=== PATIENT | male | born 1945 ===

== ENCOUNTER 2017-06-18 09:17 | Emergency (ER) | payer SELFPAY ==
[2017-06-18 09:20] VITALS: BMI 24.5
[2017-06-18 09:22] VITALS: BP 144/79; PULSE 58; RESP 17; TEMP 98.5; O2SAT 98
[2017-06-18] MEDS ORDERED: Sodium Chloride 0.9% 500 ML IV STA (09:37)
--- NOTE | 2017-06-18 09:41 | ED PDOC ---
Lower Extremity Pain/Injury Time Seen by Provider: 06/18/17 09:30 Chief Complaint (Nursing): Lower Extremity Problem/Injury Chief Complaint (Provider): Knee pain History Per: Patient History/Exam Limitations: no limitations Onset/Duration Of Symptoms: Days (2) Current Symptoms Are (Timing): Still Present Severity: Mild Additional Complaint(s): Pt. with R knee pain ongoing for 2 days. Feels like his usual gout flare. Swelling of knee also present. Able to bend knee with pain. No numbness, tingles, fever, chills, headaches. Takes allopurinol at home, no other pain meds. No calf pain. Past Medical History Reviewed: Nursing Documentation, Vital Signs Vital Signs: Last Vital Signs Temp 98.5 F 06/18/17 09:20 Pulse 58 L 06/18/17 09:20 Resp 17 06/18/17 09:20 BP 144/79 06/18/17 09:20 Pulse Ox 98 06/18/17 09:31 - Medical History PMH: HTN Other PMH: gout - Surgical History Surgical History: No Surg Hx - Family History Family History: States: Unknown Family Hx - Living Arrangements Living Arrangements: With Family - Social History Current smoker - smoking cessation education provided: No Alcohol: None Drugs: Denies - Home Medications Home Medications: Ambulatory Orders Medication Instructions Recorded Ibuprofen [Motrin] 600 mg PO TID 7 Days 06/18/17 - Allergies Allergies/Adverse Reactions: Allergies Allergy/AdvReac Type Severity Reaction Status Date / Time No Known Allergies Allergy Verified 06/18/17 09:31 Review of Systems ROS Statement: Except As Marked, All Systems Reviewed And Found Negative Musculoskeletal: Positive for: Leg Pain Physical Exam - Reviewed Nursing Documentation Reviewed: Yes Vital Signs Reviewed: Yes - Physical Exam Appears: Positive for: Non-toxic, No Acute Distress Head Exam: Positive for: ATRAUMATIC, NORMAL INSPECTION, NORMOCEPHALIC Skin: Positive for: Normal Color, Warm, DRY Neck: Positive for: Normal, Painless ROM, Supple Cardiovascular/Chest: Positive for: Regular Rate, Rhythm Respiratory: Positive for: CNT, Normal Breath Sounds Pulses-Dorsalis Pedis (R): 2+ Pulses-Post. Tibialis (R): 2+ Back: Positive for: Normal Inspection. Negative for: L CVA Tenderness, R CVA Tenderness Extremity: Positive for: Normal ROM (mild pain but full ROM of R knee; no laxity ), Tenderness (R knee lateral and medial area with swelling mild), Swelling, Other (no abrasion or dc). Negative for: Calf Tenderness, Deformity Neurologic/Psych: Positive for: Alert, Oriented - Laboratory Results Result Diagrams: 06/18/17 10:00 06/18/17 10:00 Interpretation Of Abn Labs: no acute - ECG O2 Sat by Pulse Oximetry: 98 Pulse Ox Interpretation: Normal - Radiology X-Ray: Read By Radiologist X-Ray Interpretation: No Acute Disease - Progress ED Course And Treament: 1040: Stable. AAOx3. Uric acid level wnl. Has decreased pain. Not likely septic knee as pt. is able to move in fully. No wbc. No fever or tachycardia. Fu with clinic. Has small effusion which pt. can see [facility] for further eval and possible ortho referral. Ambulating with no issues. Disposition - Clinical Impression Clinical Impression: Knee pain - Patient ED Disposition Is Patient to be Admitted: No Counseled Patient/Family Regarding: Studies Performed, Diagnosis, Need For Followup, Rx Given - Disposition Referrals: [facility] [Outside] - 06/20/17 Disposition: Routine/Home Disposition Time: 10:42 Condition: STABLE Additional Instructions: Return if not better in 3 days. Prescriptions: Ibuprofen [Motrin] 600 mg PO TID 7 Days Instructions: Knee Pain (ED) Forms: [employer] (Divehi) Print Language: HUNGARIAN
[2017-06-18 10:23] LABS: BASO % 0.6 % (0.0-2.0); EOS # 0.2 K/uL (0.0-0.7); EOS % 3.7 % (0.0-4.0); HEMOGLOBIN 15.4 g/dL (12.0-18.0); LYMPH # 1.9 K/uL (1.0-4.3); MEAN CELL VOLUME 91.3 fl (80.0-94.0); MEAN CORPUSCULAR HEMOGLOBIN 29.8 pg (27.0-31.0); MEAN CORPUSCULAR HGB CONC 32.6 g/dL (33.0-37.0); MONO # 0.5 K/uL (0.0-0.8); MONO % 11.5 % (0.0-10.0); NEUT # 1.6 K/uL (1.8-7.0); NEUT % 38.2 % (50.0-75.0); NRBC % 0.1 % (0.0-0.0); RBC 5.15 Mil/uL (4.40-5.90); RED CELL DISTRIBUTION WIDTH 15.4 % (11.5-14.5); WHITE BLOOD COUNT 4.2 K/uL (4.8-10.8)
--- NOTE | 2017-06-18 10:23 | RAD ---
HISTORY: pain COMPARISON: No prior FINDINGS: BONES: Osteopenia no fracture. JOINTS: Small joint effusion. Lateral compartment chondrocalcinosis SOFT TISSUE: Normal. OTHER FINDINGS: None . IMPRESSION: No acute fracture.
[2017-06-18 10:37] LABS: ALB/GLOB RATIO 1.3 (1.0-2.1); ALBUMIN 4.1 g/dL (3.5-5.0); ALT/SGPT 40 U/L (21-72); AST/SGOT 25 U/L (17-59); BLOOD UREA NITROGEN 16 mg/dl (9-20); CALCIUM 10.1 mg/dL (8.4-10.2); GFR AFRICAN-AMERICAN > 60; GFR NON-AFRICAN AMERICAN > 60; URIC ACID 5.1 mg/Dl (3.5-8.5)
== END 2017-06-18 11:11 | disposition home or self-care (01) ==
LOC: H.ER 09:17
DX: M25.561 Pain in right knee (principal); M10.9 Gout, unspecified; I10 Essential (primary) hypertension

== ENCOUNTER 2017-06-19 12:16 | Emergency (ER) | payer SELFPAY ==
[2017-06-19 12:17] VITALS: BMI 24.5
[2017-06-19 12:36] VITALS: BP 134/72; PULSE 68; RESP 16; TEMP 98.8; O2SAT 100
--- NOTE | 2017-06-19 12:57 | ED PDOC ---
Lower Extremity Pain/Injury Time Seen by Provider: 06/19/17 12:41 Chief Complaint (Nursing): Lower Extremity Problem/Injury History Per: Patient (Right knee pain x 3 weeks. No h/o trauma or fever. Seen yesterday with same. Mild relief with Toradol but still with pain today.) Onset/Duration Of Symptoms: Other (3 weeks) Current Symptoms Are (Timing): Still Present Severity: Moderate Pain Scale Rating Of: 4 - Hip Currently Unable To: Bend Or Move Past Medical History Vital Signs: Last Vital Signs Temp 98.8 F 06/19/17 12:34 Pulse 68 06/19/17 12:34 Resp 16 06/19/17 12:34 BP 134/72 06/19/17 12:34 Pulse Ox 100 06/19/17 12:34 - Medical History PMH: HTN Denies: Chronic Kidney Disease Other PMH: gout - Family History Family History: States: Unknown Family Hx - Home Medications Home Medications: Ambulatory Orders Medication Instructions Recorded Ibuprofen [Motrin] 600 mg PO TID 7 Days 06/18/17 traMADol [Ultram] 50 mg PO Q8 #10 tab 06/19/17 - Allergies Allergies/Adverse Reactions: Allergies Allergy/AdvReac Type Severity Reaction Status Date / Time No Known Allergies Allergy Verified 06/18/17 09:31 Review of Systems Constitutional: Negative for: Fever Musculoskeletal: Positive for: Other (Knee pain) Physical Exam - Physical Exam Appears: Positive for: Non-toxic, No Acute Distress Skin: Positive for: Normal Color, Warm, DRY Extremity: Positive for: Other (Right knee mild swelling and tenderness infrpatellar region. No effusion or crepitance. No erythema or warmth. No calf tenderness.) - ECG O2 Sat by Pulse Oximetry: 100 Disposition - Clinical Impression Clinical Impression: Knee pain - Patient ED Disposition Is Patient to be Admitted: No Counseled Patient/Family Regarding: Diagnosis, Need For Followup, Rx Given - Disposition Referrals: [facility] [Outside] Disposition: Routine/Home Disposition Time: 12:57 Condition: FAIR Prescriptions: traMADol [Ultram] 50 mg PO Q8 #10 tab Instructions: Knee Pain (ED) Forms: [employer] (Portuguese) Print Language: PRYDEINIG
== END 2017-06-19 13:33 | disposition home or self-care (01) ==
LOC: H.ER 12:16
DX: M25.561 Pain in right knee (principal)

== ENCOUNTER 2017-07-15 07:59 | Emergency (ER) | payer SELFPAY ==
[2017-07-15 07:59] VITALS: BMI 24.5
[2017-07-15 08:33] VITALS: BP 128/79; PULSE 63; RESP 16; TEMP 97; O2SAT 100
--- NOTE | 2017-07-15 10:19 | ED PDOC ---
Lower Extremity Pain/Injury Time Seen by Provider: 07/15/17 08:38 Chief Complaint (Nursing): Lower Extremity Problem/Injury Chief Complaint (Provider): right knee pain History Per: Patient History/Exam Limitations: no limitations Onset/Duration Of Symptoms: Intermittent Episodes Additional Complaint(s): Bryan Shelley is a 72 year old male, with a previous medical history of hypertension and chronic right knee pain, who presents to the ED with complaints of right knee pain intermittently ongoing for the past year associated with swelling to the knee. Patient is from [place] and reports getting a shot in the knee approximately one year ago in [place]. He reports taking tramadol and motrin with moderate relief but ran out of his medication. He denies any trauma, fever or inability to walk. PMD: none provided Past Medical History Reviewed: Historical Data, Nursing Documentation, Vital Signs Vital Signs: Last Vital Signs Temp 97 F L 07/15/17 08:26 Pulse 63 07/15/17 08:26 Resp 16 07/15/17 08:26 BP 128/79 07/15/17 08:26 Pulse Ox 100 07/15/17 08:26 - Medical History PMH: HTN Denies: Chronic Kidney Disease - Family History Family History: States: Unknown Family Hx - Home Medications Home Medications: Ambulatory Orders Medication Instructions Recorded Ibuprofen [Motrin] 600 mg PO TID 7 Days 06/18/17 traMADol [Ultram] 50 mg PO Q8 #10 tab 06/19/17 Naproxen [Naprosyn] 500 mg PO BID PRN #14 tablet 07/15/17 traMADol [Ultram] 50 mg PO QID #20 tab 07/15/17 - Allergies Allergies/Adverse Reactions: Allergies Allergy/AdvReac Type Severity Reaction Status Date / Time No Known Allergies Allergy Verified 07/15/17 08:25 Review of Systems ROS Statement: Except As Marked, All Systems Reviewed And Found Negative Constitutional: Negative for: Fever Musculoskeletal: Positive for: Leg Pain (right knee pain) Physical Exam - Reviewed Nursing Documentation Reviewed: Yes Vital Signs Reviewed: Yes - Physical Exam Appears: Positive for: Well, Non-toxic, No Acute Distress Extremity: Positive for: Normal ROM, Swelling (mild to the right knee), Other ( patellar crepitus noted ). Negative for: Deformity Neurologic/Psych: Positive for: Alert, Oriented - ECG O2 Sat by Pulse Oximetry: 100 (RA) Pulse Ox Interpretation: Normal Medical Decision Making Medical Decision Making: Initial Impression: Right Knee pain Initial Plan: * Toradol 30 mg IM * ultram 50 mg PO * reevaluation Previous charts show patient was seen in the ED last month and had extensive workup. Scribe Attestation: Documented by Gerda Paul, acting as a scribe for Octavio Winkler D.O. Provider Scribe Attestation: All medical record entries made by the Scribe were at my direction and personally dictated by me. I have reviewed the chart and agree that the record accurately reflects my personal performance of the history, physical exam, medical decision making, and the department course for this patient. I have also personally directed, reviewed, and agree with the discharge instructions and disposition. Disposition - Clinical Impression Clinical Impression: Knee pain - Disposition Referrals: [facility] [Outside] Disposition: Routine/Home Disposition Time: 10:10 Condition: STABLE Additional Instructions: See clinic for further testing. Return to ER for any new or change in symptoms. Prescriptions: Naproxen [Naprosyn] 500 mg PO BID PRN #14 tablet PRN Reason: Pain, Moderate (4-7) traMADol [Ultram] 50 mg PO QID #20 tab Instructions: Knee Pain (ED), Arthralgia (ED) Forms: [employer] (Cayman Islander) Print Language: AFGHAN
== END 2017-07-15 10:25 | disposition home or self-care (01) ==
LOC: H.ER 07:59
DX: M25.561 Pain in right knee (principal); I10 Essential (primary) hypertension
CPT/HCPCS: 96372; 99283; J1885

== ENCOUNTER 2018-08-20 09:10 | Emergency (ER) | payer SELFPAY ==
[2018-08-20 09:15] VITALS: TEMP 98
[2018-08-20 09:16] VITALS: BMI 25.9
--- NOTE | 2018-08-20 10:06 | ED PDOC ---
Lower Extremity Pain/Injury Time Seen by Provider: 08/20/18 09:26 Chief Complaint (Nursing): Lower Extremity Problem/Injury Chief Complaint (Provider): Leg pain History Per: Patient Additional Complaint(s): 73 yo male, PMH of HTN, brought into ED by [facility] stating pt lost his balance, tripped and fell. Pt twisted his right ankle and landed on his right knee. No other injury. Pt denies nay chest pain or dizziness prior to fall. Pt has been ambulating around house with limp, so family brought Pt to ED for evaluation. Past Medical History Reviewed: Nursing Documentation, Vital Signs Vital Signs: Last Vital Signs Temp 98 F 08/20/18 09:14 Pulse 64 08/20/18 09:14 Resp BP 133/80 08/20/18 09:14 Pulse Ox 98 08/20/18 09:19 - Medical History PMH: HTN Denies: Chronic Kidney Disease - Family History Family History: States: Unknown Family Hx - Living Arrangements Living Arrangements: With Family - Social History Current smoker - smoking cessation education provided: No Alcohol: None Drugs: Denies - Home Medications Home Medications: Ambulatory Orders Medication Instructions Recorded Ibuprofen [Motrin] 600 mg PO TID 7 Days tab 06/18/17 traMADol [Ultram] 50 mg PO Q8 #10 tab 06/19/17 Naproxen [Naprosyn] 500 mg PO BID PRN #14 tablet 07/15/17 traMADol [Ultram] 50 mg PO QID #20 tab 07/15/17 Ibuprofen [Motrin] 600 mg PO Q6 #20 tab 08/20/18 Walker [Rolling Walker] 1 dev XX PRN PRN #1 dev 08/20/18 - Allergies Allergies/Adverse Reactions: Allergies Allergy/AdvReac Type Severity Reaction Status Date / Time No Known Allergies Allergy Verified 08/20/18 09:19 Review of Systems ROS Statement: Except As Marked, All Systems Reviewed And Found Negative Musculoskeletal: Positive for: Leg Pain Physical Exam - Reviewed Nursing Documentation Reviewed: Yes Vital Signs Reviewed: Yes - Physical Exam Appears: Positive for: Well, Non-toxic, No Acute Distress Head Exam: Positive for: ATRAUMATIC, NORMAL INSPECTION, NORMOCEPHALIC Skin: Positive for: Normal Color, Warm, DRY Eye Exam: Positive for: EOMI, Normal appearance, PERRL ENT: Positive for: Normal ENT Inspection Neck: Positive for: Normal, Painless ROM Cardiovascular/Chest: Positive for: Regular Rate, Rhythm Respiratory: Positive for: CNT, Normal Breath Sounds Gastrointestinal/Abdominal: Positive for: Normal Exam, Soft Back: Positive for: Normal Inspection Extremity: Positive for: Normal ROM. Negative for: Tenderness, Deformity, Swelling Neurologic/Psych: Positive for: Alert, Oriented - ECG O2 Sat by Pulse Oximetry: 98 Medical Decision Making Medical Decision Making: XRs reviewed of knee and ankle. Pt given Motrin for pain and reports good relief obtained. Pt has family at bedside and results discussed. Advised supportive care measures and give RX to continue Motrin and us Walker. RICE therapy discussed as well. Pt delcined dressing while in ED Disposition - Clinical Impression Clinical Impression: Ankle injury, Knee pain - Patient ED Disposition Is Patient to be Admitted: No - Disposition Disposition: Routine/Home Disposition Time: 11:00 Condition: STABLE Prescriptions: Ibuprofen [Motrin] 600 mg PO Q6 #20 tab Walker [Rolling Walker] 1 dev XX PRN PRN #1 dev PRN Reason: Pain, Moderate (4-7) Instructions: Ankle Sprain, Chronic Knee Pain (DC) Forms: [employer] (Omani)
--- NOTE | 2018-08-20 10:47 | RAD ---
Date of service: 08/20/2018 PROCEDURE: Right Knee Radiographs. HISTORY: pain s/p fall COMPARISON: 06/18/2017 FINDINGS: BONES: Three views of the right knee were performed. No fracture is seen. Stable chondrocalcinosis is noted. 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 JOINTS: Stable degenerative changes. No tibial plateau depression seen. JOINT EFFUSION: Small joint effusion is suspected. This is however mildly decreased. OTHER FINDINGS: Mild prepatellar soft tissue thickening. May also be some soft tissue thickening in the posterior knee on the lateral view. IMPRESSION: No appreciable fracture. Stable chondrocalcinosis. Decreased joint effusion from prior study.
--- NOTE | 2018-08-20 10:49 | RAD ---
Date of service: 08/20/2018 PROCEDURE: Right Ankle Radiographs. HISTORY: pain s/p fall COMPARISON: None FINDINGS: BONES: Three views of the right ankle were performed for right ankle pain and trauma. No fracture is seen. No lytic process is identified. Base of the 5th metatarsal is intact. Distal fibula is intact. Small calcaneal spurs are seen. JOINTS: No ankle mortise widening. Mild degenerative changes.. Subtalar joint is unremarkable. SOFT TISSUES: Mild soft tissue swelling. OTHER FINDINGS: None. IMPRESSION: No appreciable right ankle fracture. No ankle mortise widening. Mild degenerative changes.
[2018-08-20 13:11] VITALS: BP 122/78; PULSE 78; RESP 17; O2SAT 100
== END 2018-08-20 13:09 | disposition home or self-care (01) ==
LOC: H.ER 09:10
DX: S99.911A Unspecified injury of right ankle, initial encounter (principal); S89.91XA Unspecified injury of right lower leg, initial encounter; W19.XXXA Unspecified fall, initial encounter; I10 Essential (primary) hypertension

== ENCOUNTER 2018-08-22 10:45 | Emergency (ER) | payer SELFPAY ==
[2018-08-22 10:45] VITALS: BMI 25.9
[2018-08-22 10:58] VITALS: TEMP 97.7
--- NOTE | 2018-08-22 11:13 | ED PDOC ---
Lower Extremity Pain/Injury Time Seen by Provider: 08/22/18 11:03 Chief Complaint (Provider): right knee and right ankle pain History Per: Patient History/Exam Limitations: no limitations Onset/Duration Of Symptoms: Days (x3) Current Symptoms Are (Timing): Still Present Additional Complaint(s): Bryan Rosado is a 73 year old male, with no significant past medical history, who presents to the emergency department complaining of right knee and ankle pain s/p fall x3 days ago. Patient reports he tripped and fell with injury to right lower extremity. He was seen here on 08/20 with x-rays of right knee and ankle which were negative for fracture or dislocation. Patient states he continues to have pain on ambulation despite taking Motrin. He denies any new injuries or trauma. No further medical complaints. PMD: None provided. - Knee Description Of Injury: Fell - Ankle/Foot Description Of Injury: Fell Past Medical History Reviewed: Historical Data, Nursing Documentation, Vital Signs Vital Signs: Last Vital Signs Temp 97.7 F 08/22/18 10:57 Pulse 64 08/22/18 10:57 Resp 17 08/22/18 10:57 BP 127/65 08/22/18 10:57 Pulse Ox 94 L 08/22/18 10:57 - Medical History PMH: HTN Denies: Chronic Kidney Disease - Surgical History Surgical History: No Surg Hx - Family History Family History: States: Unknown Family Hx - Home Medications Home Medications: Ambulatory Orders Medication Instructions Recorded Ibuprofen [Motrin] 600 mg PO TID 7 Days tab 06/18/17 traMADol [Ultram] 50 mg PO Q8 #10 tab 06/19/17 Naproxen [Naprosyn] 500 mg PO BID PRN #14 tablet 07/15/17 traMADol [Ultram] 50 mg PO QID #20 tab 07/15/17 Ibuprofen [Motrin] 600 mg PO Q6 #20 tab 08/20/18 Walker [Rolling Walker] 1 dev XX PRN PRN #1 dev 08/20/18 traMADol [Ultram] 50 mg PO Q8 #10 tab 08/22/18 - Allergies Allergies/Adverse Reactions: Allergies Allergy/AdvReac Type Severity Reaction Status Date / Time No Known Allergies Allergy Verified 08/20/18 09:19 Review of Systems ROS Statement: Except As Marked, All Systems Reviewed And Found Negative Musculoskeletal: Positive for: Leg Pain (right knee and right ankle) Physical Exam - Reviewed Nursing Documentation Reviewed: Yes Vital Signs Reviewed: Yes - Physical Exam Appears: Positive for: No Acute Distress Head Exam: Positive for: ATRAUMATIC, NORMOCEPHALIC Skin: Positive for: Normal Color, Warm, Dry Eye Exam: Positive for: Normal appearance Neck: Positive for: Painless ROM Respiratory: Negative for: Respiratory Distress Extremity: Positive for: Normal ROM (full ROM of right knee), Swelling (right ankle mild swelling to lateral malleolus. No knee swelling). Negative for: Tenderness (right knee or ankle), Deformity (Right knee or ankle), Other (focal motor/sensory deficits) Neurologic/Psych: Positive for: Alert, Oriented. Negative for: Motor/Sensory Deficits - ECG O2 Sat by Pulse Oximetry: 94 (RA) Pulse Ox Interpretation: Abnormal Medical Decision Making Medical Decision Making: Time: 11:03 Initial Plan: --Reevaluation ----- Scribe Attestation: Documented by Negrito Oliveira, acting as a scribe for Main Tariq MD. Provider Scribe Attestation: All medical record entries made by the Scribe were at my direction and personally dictated by me. I have reviewed the chart and agree that the record accurately reflects my personal performance of the history, physical exam, medical decision making, and the department course for this patient. I have also personally directed, reviewed, and agree with the discharge instructions and disposition. Disposition - Clinical Impression Clinical Impression: Ankle sprain and strain, Knee pain - Patient ED Disposition Is Patient to be Admitted: No Counseled Patient/Family Regarding: Studies Performed, Diagnosis, Need For Followup, Rx Given - Disposition Referrals: [facility] [Outside] Disposition: Routine/Home Disposition Time: 11:21 Condition: FAIR Prescriptions: traMADol [Ultram] 50 mg PO Q8 #10 tab Instructions: Ankle Sprain, Knee Pain Print Language: UZBEK
[2018-08-22 12:15] VITALS: BP 126/68; PULSE 70; RESP 18; O2SAT 96
== END 2018-08-22 11:37 | disposition home or self-care (01) ==
LOC: H.ER 10:45
DX: S93.401D Sprain of unspecified ligament of right ankle, subsequent encounter (principal); M25.561 Pain in right knee; I10 Essential (primary) hypertension; W19.XXXA Unspecified fall, initial encounter